=== PATIENT | female | born 1965 | race Caucasian/White ===

== ENCOUNTER 2016-12-02 17:17 | Emergency (ER) | payer MEDICAID ==
[~2016-12-02] VITALS: Ht 162.6 cm; Wt 133.0 kg
[~2016-12-02 17:17] MED LIST: CITA20 PO; CYCL-36 PO; GABA600T PO; GLUC10TA3 PO; HYDR-3533 PO; LISI-586 PO; MEDR4PAK3 PO; METF500 PO; PIOG15 PO
[2016-12-02 17:25] VITALS: BP 177/66; PULSE 105; RESP 20; TEMP 98.3; O2SAT 99
--- NOTE | 2016-12-02 17:37 | PD ---
HPI Chief Complaint: Respiratory Symptoms Time Seen by Provider: 17:29 Travel History International Travel<30 days: No Contact w/Intl Traveler<30days: No Traveled to known affect area: No History of Present Illness HPI 51-year-old female presents the emergency Department with bronchitis and asthma with increased productive cough over the past several days. Patient is a 2 diabetic on insulin with history of recurrent bronchitis with wheezing. Patient has nebulizers at home. She ran out of her metered-dose inhaler several weeks ago. Patient has had chills but no specific reports of fever. Patient states she quit smoking 2 days ago. Patient has no nausea vomiting or diarrhea. She denies headache or severe sore throat. PFSH Past Medical History Cardiovascular Problems: Yes (HTN) Diabetes: Yes Respiratory: Yes (COPD) Social History Alcohol Use: Yes Tobacco Use: Yes Substance Use: No Allergies-Medications (Allergen,Severity, Reaction): Coded Allergies: Codeine (Verified Allergy, Intermediate, 12/02/16) Itch Metformin (Verified Adverse Reaction, Severe, 12/02/16) Pancreatitis Morphine (Verified Adverse Reaction, Severe, 12/02/16) Pizano Veins Reported Meds & Prescriptions Reported Meds & Active Scripts Active Prednisone 20 Mg Tab 20 Mg PO BID Azithromycin 500 Mg Tab 500 Mg PO DAILY Ventolin Hfa 18 GM Inh (Albuterol Sulfate) 90 Mcg/Act Aer 2 Puff INH Q4-6H PRN Reported Albuterol Neb (Albuterol Sulfate) 0.63 Mg/3 Ml Neb 0.63 Mg NEB Q4HR NEB PRN Proair Hfa 8.5 GM Inh (Albuterol Sulfate) 90 Mcg/Act Aer 1 Puff INH Q4H PRN 108 mcg/actuation Mucinex Allergy (Fexofenadine HCl) 180 Mg Tab 180 Mg PO DAILY Glipizide 10 Mg Tab 10 Mg PO DAILY Take 30 minutes before a meal Valium (Diazepam) 5 Mg Tab 5 Mg PO HS PRN Flexeril (Cyclobenzaprine HCl) 10 Mg Tab 2 Tab PO DIRECTED Lisinopril-Hctz 20-12.5 Mg Tab 1 Tab PO DAILY Novolog Penfill Inj (Insulin Aspart) 300 Unit/3 Ml Pen 1 Units SQ DIRECTED PRN Lantus Solostar Pen Inj (Insulin Glargine) 300 Unit/3 Ml Pen 20 Units SQ HS Januvia (Sitagliptin Phosphate) 50 Mg Tab 50 Mg PO DAILY Review of Systems Except as stated in HPI: all other systems reviewed are Neg General / Constitutional: No: Fever Eyes: No: Visual changes HENT: Positive: Rhinitis, Rhinorrhea, Congestion, No: Headaches, Sore Throat, Neck Stiffness, Neck Pain, Ear Discharge, Earache Cardiovascular: No: Chest Pain or Discomfort Respiratory: Positive: Cough, Shortness of Breath, Wheezing, Orthopnea, No: Sneezing, Hemoptysis, Stridor, Night Sweats, Pleuritic Pain Gastrointestinal: No: Nausea, Vomiting, Diarrhea, Abdominal Pain Genitourinary: No: Dysuria Musculoskeletal: No: Pain Skin: No Rash Neurologic: No: Weakness Psychiatric: No: Depression Endocrine: No: Polydipsia Hematologic/Lymphatic: No: Easy Bruising Physical Exam Narrative GENERAL: Morbidly obese patient in mild respiratory distress. SKIN: Warm and dry. Normal color. Normal turgor. HEAD: Atraumatic. Normocephalic. No sinus tenderness. EYES: Pupils equal and round. No scleral icterus. No injection or drainage. ENT: No nasal bleeding or discharge. No sinus tenderness to palpation. Mucous membranes pink and moist. Neck supple. Pharynx is Unremarkable. TMs are clear bilaterally. Airway is patent. Uvula is midline. NECK: Trachea midline. Supple and nontender. CARDIOVASCULAR: Regular rate and rhythm. RESPIRATORY: Mild accessory muscle use. Moderate diffuse wheezing to auscultation. Breath sounds equal bilaterally. MUSCULOSKELETAL: Extremities without clubbing, cyanosis, or edema. No obvious deformities. NEUROLOGICAL: Awake and alert. No obvious cranial nerve deficits. Motor grossly within normal limits. Five out of 5 muscle strength in the arms and legs. Normal speech. PSYCHIATRIC: Appropriate mood and affect; insight and judgment normal. Data Data Last Documented VS Vital Signs Date Time Temp Pulse Resp B/P Pulse Ox O2 Delivery O2 Flow Rate FiO2 12/02/16 18:17 97 Room Air 12/02/16 17:25 98.3 105 20 177/66 Orders Chest, Single Ap (12/02/16 17:37) Ecg Monitoring (12/02/16 17:37) Oximetry (12/02/16 17:37) Oxygen Administration (12/02/16 17:37) Prednisone (Deltasone) (12/02/16 17:45) Albuterol-Ipratropium Neb (Duoneb Neb) (12/02/16 17:45) Sodium Chloride 0.9% Flush (Ns Flush) (12/02/16 17:45) Ceftriaxone Inj (Rocephin Inj) (12/02/16 17:45) Azithromycin (Zithromax) (12/02/16 17:45) Lidocaine Pf 1% Inj (Xylocaine-Mpf 1% In (12/02/16 18:15) MDM Medical Decision Making Medical Screen Exam Complete: Yes Emergency Medical Condition: Yes Differential Diagnosis Asthma with exacerbation. Bronchitis. COPD. Wheezing. Pneumonia. Narrative Course Patient appears in mild to moderate respiratory distress. Chest x-ray is ordered. Chest x-ray is read as no acute process per radiologist. Patient is given 60 mg prednisone by mouth as well as DuoNeb every 15 minutes 3. Patient is given Rocephin 1000 mg IM. Patient is given azithromycin 500 mg by mouth. Patient will be treated with azithromycin 500 mg daily for the next 5 days. Patient is continued on prednisone 20 mg twice a day 7 days. Patient is to use albuterol nebulizer every 4-6 hours when necessary. Patient is to continue to not smoke. Patient is to follow-up with her primary care physician or return to emergency department as necessary. Diagnosis Primary Impression: Acute wheezy bronchitis Referrals: Primary Care Physician Patient Instructions: Acute Bronchitis (ED), General Instructions, Wheezing (ED ) Additional Instructions: Patient is given 60 mg prednisone by mouth as well as DuoNeb every 15 minutes 3. Patient is given Rocephin 1000 mg IM. Patient is given azithromycin 500 mg by mouth. Patient will be treated with azithromycin 500 mg daily for the next 5 days. Patient is continued on prednisone 20 mg twice a day 7 days. Patient is to use albuterol nebulizer every 4-6 hours when necessary. Patient is to continue to not smoke. Patient is to follow-up with her primary care physician or return to emergency department as necessary. Med/Other Pt SpecificInfo: Prescription(s) given Scripts Prednisone 20 Mg Tab20 Mg PO BID #14 TAB Prov:Ruma Calderón MD 12/02/16 Azithromycin 500 Mg Hog050 Mg PO DAILY #5 TAB Ref 0 Prov:Ruma Calderón MD 12/02/16 Albuterol 18 GM Inh (Ventolin Hfa 18 GM Inh)90 Mcg/Act Aer2 Puff INH Q4-6H PRN ( SHORTNESS OF BREATH) #1 INHALER Prov:Ruma Calderón MD 12/02/16 Disposition: 01 DISCHARGE HOME Condition: Stable Taran Agrawal Dec 02, 2016 17:37
[2016-12-02] MEDS ORDERED: FEXO1TAB41 PO (17:41)
[2016-12-02] MEDS ORDERED: NOVOINJ SQ (17:41)
[2016-12-02] MEDS ORDERED: CYCL1TAB29 PO (17:41)
[2016-12-02] MEDS ORDERED: LANTINJ SQ (17:41)
[2016-12-02] MEDS ORDERED: SITA50 PO (17:41)
[2016-12-02] MEDS ORDERED: ALBUAER3 INH (17:41)
[2016-12-02] MEDS ORDERED: ALBU0.63 NEB (17:41)
[2016-12-02] MEDS ORDERED: LISI20TA PO (17:41)
[2016-12-02] MEDS ORDERED: GLIP10TA6 PO (17:41)
[2016-12-02] MEDS ORDERED: DIAZ5 PO (17:41)
[2016-12-02] MEDS: RESP: ALBUTEROL 2.5 MG/IPRATROPIUM 0.5 MG NEB (SCH) INH (17:43)
[2016-12-02] MEDS ORDERED: AZITHROMYCIN 250 MG TAB PO ONE (17:45)
[2016-12-02] MEDS ORDERED: SODIUM CHLORIDE 0.9% FLUSH 10 ML FLUSH IVF PRN (17:45)
[2016-12-02] MEDS ORDERED: predniSONE 20 MG TAB PO ONE (17:45)
[2016-12-02] MEDS ORDERED: LIDOCAINE HCL 1% 20 ML VIAL INFIL ONE (18:00)
[2016-12-02] MEDS ORDERED: LIDOCAINE HCL 1% 30 ML VIAL INFIL ONE (18:00)
[2016-12-02] MEDS ORDERED: LIDOCAINE HCL 1% PF 30 ML VIAL INFIL ONE (18:15)
[2016-12-02 18:17] VITALS: O2SAT 97
--- NOTE | 2016-12-02 18:29 | RADHPO ---
EXAM DATE/TIME: 12/02/2016 18:09 [facility] COMPARISON: No previous studies available for comparison. INDICATIONS : Short of breath, cough, chest pains MEDICAL HISTORY : Chronic obstructive pulmonary disease. SURGICAL HISTORY : None. ENCOUNTER: Initial ACUITY: 4 - 6 days PAIN SCORE: 10/10 LOCATION: Bilateral chest FINDINGS: A single view of the chest demonstrates the lungs to be symmetrically aerated without evidence of mas s, infiltrate or effusion. The cardiomediastinal contours are unremarkable. Osseous structures are intact. CONCLUSION: No acute disease. Yassine Sam MD on December 02, 2016 at 18:19 Board Certified Radiologist. This report was verified electronically.
[2016-12-02] MEDS ORDERED: VENTAER INH (18:35)
[2016-12-02] MEDS ORDERED: AZIT500T2 PO (18:35)
[2016-12-02] MEDS ORDERED: PRED20 PO (18:35)
[2016-12-02 18:49] VITALS: BP 146/71; PULSE 112; RESP 18; O2SAT 96
== END 2016-12-02 19:06 | disposition home or self-care (01) ==
LOC: PHEFT 17:17
DX: J20.9 Acute bronchitis, unspecified (principal); Z87.891 Personal history of nicotine dependence; I10 Essential (primary) hypertension; E11.9 Type 2 diabetes mellitus without complications; J44.9 Chronic obstructive pulmonary disease, unspecified
CPT/HCPCS: 71010; 94640; 94664; 96372; 99283; J0696; J7512

== ENCOUNTER 2016-12-11 02:28 | Emergency (ER) | payer MEDICAID ==
[~2016-12-11] VITALS: Ht 165.1 cm; Wt 127.3 kg
[~2016-12-11 02:28] MED LIST changes: +ALBU0.63 NEB; +ALBUAER3 INH; +AZIT500T2 PO; -CITA20 PO; -CYCL-36 PO; +CYCL1TAB29 PO; +DIAZ5 PO; +FEXO1TAB41 PO; -GABA600T PO; +GLIP10TA6 PO; -GLUC10TA3 PO; -HYDR-3533 PO; +LANTINJ SQ; -LISI-586 PO; +LISI20TA PO; -MEDR4PAK3 PO; -METF500 PO; +NOVOINJ SQ; -PIOG15 PO; +PRED20 PO; +SITA50 PO; +VENTAER INH
[2016-12-11 02:34] VITALS: BP 136/105; PULSE 107; RESP 16; TEMP 97.7; O2SAT 95
[2016-12-11 03:00] VITALS: BP 181/84; PULSE 99; RESP 20; O2SAT 97
[2016-12-11] MEDS ORDERED: SODIUM CHLORIDE 0.9% FLUSH 10 ML FLUSH IVF PRN (03:00)
[2016-12-11] MEDS: RESP: ALBUTEROL 2.5 MG/IPRATROPIUM 0.5 MG NEB (SCH) INH (03:02)
[2016-12-11 03:47] LABS: BLOOD, URINE NEG (NEG); GLUCOSE,URINE 500 mg/dL (NEG); KETONE, URINE TRACE mg/dL (NEG); NITRITE,URINE NEG (NEG)
[2016-12-11 03:55] LABS: AUTOMATED NEUTROPHIL # 13.8 TH/MM3 (1.8-7.7); BASOPHIL # 0.2 TH/MM3 (0-0.2); BASOPHIL % 1.2 % (0.0-2.0); EOSINOPHIL # 0.2 TH/MM3 (0-0.4); HEMATOCRIT 47.9 % (35.0-46.0); LYMPHOCYTE # 3.5 TH/MM3 (1.0-4.8); MEAN CELL VOLUME 85.5 FL (80.0-100.0); MEAN CORPUSCULAR HEMOGLOBIN 27.9 PG (27.0-34.0); MEAN CORPUSCULAR HGB CONC 32.7 % (32.0-36.0); MONO % 4.5 % (0.0-8.0); NEUT % 74.3 % (16.0-70.0); PLATELET COUNT 403 TH/MM3 (150-450); RED BLOOD COUNT 5.61 MIL/MM3 (4.00-5.30); RED CELL DISTRIBUTION WIDTH 15.2 % (11.6-17.2); WHITE BLOOD COUNT 18.5 TH/MM3 (4.0-11.0)
[2016-12-11 03:58] LABS: URINE COLOR YELLOW (YELLW/STRAW)
[2016-12-11 03:59] LABS: MUCUS URINE FEW /lpf (OCC); SQUAMOUS EPITHELIAL CELL URINE 0-5 /hpf (0-5)
--- NOTE | 2016-12-11 04:00 | RADHPO ---
EXAM DATE/TIME: 12/11/2016 03:38 [facility] COMPARISON: CHEST SINGLE AP, December 02, 2016, 18:09. INDICATIONS : Short of breath. MEDICAL HISTORY : None. SURGICAL HISTORY : None. ENCOUNTER: Initial ACUITY: 1 day PAIN SCORE: 6/10 LOCATION: Bilateral chest FINDINGS: A single view of the chest demonstrates the lungs to be symmetrically aerated without evidence of mas s, infiltrate or effusion. The cardiomediastinal contours are unremarkable. Osseous structures are intact. CONCLUSION: Normal examination. Iain Gaxiola Jr., MD on December 11, 2016 at 3:58 Board Certified Radiologist. This report was verified electronically.
[2016-12-11 04:02] LABS: BACTERIA, URINE OCC /hpf; COMMENT (UR) CULT NOT INDICATED; CULTURE IF INDICATED CULT NOT INDICATED
[2016-12-11 04:07] LABS: CHLORIDE 95 MEQ/L (98-107); POTASSIUM 3.6 MEQ/L (3.5-5.1); SODIUM (NA) 137 MEQ/L (136-145)
[2016-12-11 04:09] LABS: ANION GAP 11 MEQ/L (5-15); BICARBONATE 31.4 MEQ/L (21.0-32.0)
[2016-12-11 04:10] LABS: APTT (PATIENT) 23.7 SEC (24.3-30.1); BLOOD UREA NITROGEN 21 MG/DL (7-18); INTERNATIONAL NORMALIZED RATIO 0.9 RATIO
[2016-12-11 04:11] LABS: HEMO FLAGS AUTO DIFF
[2016-12-11 04:13] LABS: GLOMERULAR FILTRATION RATE 60 ML/MIN (>89)
[2016-12-11 04:29] LABS: PLATELET ESTIMATE SMEAR NORMAL (NORMAL); PLATELET MORPHOLOGY NORMAL (NORMAL); SCAN/DIFF AUTO DIFF CONFIRMED
[2016-12-11] MEDS ORDERED: SODIUM CHLOR 0.9% 1000 ML INJ 1,000 ML IV ONE (04:30)
[2016-12-11 04:37] LABS: CREATINE KINASE 86 U/L (26-192)
--- NOTE | 2016-12-11 04:40 | RADHPO ---
EXAM DATE/TIME: 12/11/2016 03:50 [facility] COMPARISON: No previous studies available for comparison. INDICATIONS : Cephalgia. RADIATION DOSE: 59.18 CTDIvol (mGy) MEDICAL HISTORY : Hypertension. Diabetes mellitus type 2. SURGICAL HISTORY : None. ENCOUNTER: Initial ACUITY: 1 day PAIN SCALE: 6/10 LOCATION: Bilateral cranial TECHNIQUE: Multiple contiguous axial images were obtained of the head. Using automated exposure control and adj ustment of the mA and/or kV according to patient size, radiation dose was kept as low as reasonably a chievable to obtain optimal diagnostic quality images. FINDINGS: CEREBRUM: The ventricles are normal for age. No evidence of midline shift, mass lesion, hemorrhage or acute in farction. No extra-axial fluid collections are seen. POSTERIOR FOSSA: The cerebellum and brainstem are intact. The 4th ventricle is midline. The cerebellopontine angle i s unremarkable. EXTRACRANIAL: The visualized portion of the orbits is intact. Mucosal thickening without air-fluid level involving the right maxillary sinus. SKULL: The calvaria is intact. No evidence of skull fracture. CONCLUSION: 1. No acute intracranial abnormality. 2. Chronic right maxillary sinus disease. Iain Gaxiola Jr., MD on December 11, 2016 at 4:38 Board Certified Radiologist. This report was verified electronically.
[2016-12-11] MEDS ORDERED: KETOROLAC TROMETHAMINE 30 MG/ML (IVP) VIAL IV PUSH ONE (04:45)
--- NOTE | 2016-12-11 05:00 | PD ---
HPI Chief Complaint: Pain: Acute or Chronic Time Seen by Provider: 02:46 Travel History International Travel<30 days: No Contact w/Intl Traveler<30days: No Traveled to known affect area: No History of Present Illness HPI Patient is a 51 year old female who comes in complaining of cramping of her legs. She says that she had a cramp in her left foot and then the pain spread up her leg into the left side of her abdomen. She says she also developed the cramping pain to the right leg. This all started suddenly tonight after she had spent most of the night packing to return to [place]. She says she also experienced a "numbness" to her left arm. She says she still has feeling to her arm, but it feels different. She denies any chest pain. She has been having a COPD exacerbation. She was seen here a few days ago and was started on Prednisone. She says that she feels like she needs a nebulizer treatment, but she packed her machine. PFSH Past Medical History Arthritis: Yes Asthma: Yes Cardiovascular Problems: Yes (HTN) High Cholesterol: Yes COPD: Yes Diabetes: Yes Patient Takes Glucophage: No Hypertension: Yes Musculoskeletal: Yes Respiratory: Yes (COPD) Triglycerides - High: Yes Tetanus Vaccination: Unknown ?: Not Past Surgical History Hysterectomy: Yes (PARTIAL) Social History Alcohol Use: Yes (SOCIAL) Tobacco Use: No (QUIT 11/30/16) Substance Use: No Allergies-Medications (Allergen,Severity, Reaction): Coded Allergies: Codeine (Verified Allergy, Intermediate, 12/11/16) Itch Metformin (Verified Adverse Reaction, Severe, 12/11/16) Pancreatitis Morphine (Verified Adverse Reaction, Severe, 12/11/16) Pizano Veins Reported Meds & Prescriptions Reported Meds & Active Scripts Active Prednisone 20 Mg Tab 20 Mg PO BID Ventolin Hfa 18 GM Inh (Albuterol Sulfate) 90 Mcg/Act Aer 2 Puff INH Q4-6H PRN Reported Albuterol Neb (Albuterol Sulfate) 0.63 Mg/3 Ml Neb 0.63 Mg NEB Q4HR NEB PRN Proair Hfa 8.5 GM Inh (Albuterol Sulfate) 90 Mcg/Act Aer 1 Puff INH Q4H PRN 108 mcg/actuation Mucinex Allergy (Fexofenadine HCl) 180 Mg Tab 180 Mg PO DAILY Glipizide 10 Mg Tab 10 Mg PO DAILY Take 30 minutes before a meal Valium (Diazepam) 5 Mg Tab 5 Mg PO HS PRN Flexeril (Cyclobenzaprine HCl) 10 Mg Tab 2 Tab PO DIRECTED Lisinopril-Hctz 20-12.5 Mg Tab 1 Tab PO DAILY Novolog Penfill Inj (Insulin Aspart) 300 Unit/3 Ml Pen 1 Units SQ DIRECTED PRN Lantus Solostar Pen Inj (Insulin Glargine) 300 Unit/3 Ml Pen 20 Units SQ HS Januvia (Sitagliptin Phosphate) 50 Mg Tab 50 Mg PO DAILY Review of Systems Except as stated in HPI: all other systems reviewed are Neg General / Constitutional: No: Fever, Chills Eyes: No: Blurred Vision HENT: Positive: Headaches, No: Lightheadedness Cardiovascular: No: Chest Pain or Discomfort Respiratory: Positive: Shortness of Breath, Wheezing Gastrointestinal: Positive: Abdominal Pain, No: Vomiting Genitourinary: No: Dysuria Musculoskeletal: Positive: Myalgias Skin: No Rash, No Change in Pigmentation Neurologic: No: Weakness Physical Exam Narrative GENERAL: Awake and alert, in no acute distress. SKIN: Focused skin assessment warm/dry. HEAD: Atraumatic. Normocephalic. EYES: Pupils equal and round. No scleral icterus. EOMI. ENT: Mucous membranes pink and moist. NECK: Trachea midline. No JVD. CARDIOVASCULAR: Regular rate and rhythm. No murmur appreciated. RESPIRATORY: No accessory muscle use. occasional wheezing bilaterally. Breath sounds equal bilaterally. GASTROINTESTINAL: Abdomen soft, non-tender, nondistended. MUSCULOSKELETAL: No obvious deformities. No clubbing. No cyanosis. No edema. NEUROLOGICAL: Awake and alert. No obvious cranial nerve deficits. Motor grossly within normal limits. Normal speech. Sensation intact. PSYCHIATRIC: Appropriate mood and affect; insight and judgment normal. Data Data Last Documented VS Vital Signs Date Time Temp Pulse Resp B/P Pulse Ox O2 Delivery O2 Flow Rate FiO2 12/11/16 06:23 88 20 137/62 98 12/11/16 03:00 Room Air 12/11/16 02:34 97.7 Orders Complete Blood Count With Diff (12/11/16 02:54) Basic Metabolic Panel (Bmp) (12/11/16 02:54) Act Partial Throm Time (Ptt) (12/11/16 02:54) Prothrombin Time / Inr (Pt) (12/11/16 02:54) Ckmb (Isoenzyme) Profile (12/11/16 02:54) Troponin I (12/11/16 02:54) Urinalysis - C+S If Indicated (12/11/16 02:54) Ua Includes Microscopic (12/11/16 02:54) Iv Access Insert/Monitor (12/11/16 02:54) Electrocardiogram (12/11/16 02:54) Ecg Monitoring (12/11/16 02:54) Oximetry (12/11/16 02:54) Oxygen Administration (12/11/16 02:54) Chest, Single Ap (12/11/16 02:54) Sodium Chloride 0.9% Flush (Ns Flush) (12/11/16 03:00) Albuterol-Ipratropium Neb (Duoneb Neb) (12/11/16 03:00) Ct Brain W/O Iv Contrast(Rout) (12/11/16 ) Blood Glucose (12/11/16 02:54) Sodium Chlor 0.9% 1000 Ml Inj (Ns 1000 M (12/11/16 04:30) Ketorolac Inj (Toradol Inj) (12/11/16 04:45) Labs Laboratory Tests Test 12/11/16 12/11/16 03:30 03:45 White Blood Count 18.5 TH/MM3 Red Blood Count 5.61 MIL/MM3 Hemoglobin 15.6 GM/DL Hematocrit 47.9 % Mean Corpuscular Volume 85.5 FL Mean Corpuscular Hemoglobin 27.9 PG Mean Corpuscular Hemoglobin 32.7 % Concent Red Cell Distribution Width 15.2 % Platelet Count 403 TH/MM3 Mean Platelet Volume 8.1 FL Neutrophils (%) (Auto) 74.3 % Lymphocytes (%) (Auto) 19.0 % Monocytes (%) (Auto) 4.5 % Eosinophils (%) (Auto) 1.0 % Basophils (%) (Auto) 1.2 % Neutrophils # (Auto) 13.8 TH/MM3 Lymphocytes # (Auto) 3.5 TH/MM3 Monocytes # (Auto) 0.8 TH/MM3 Eosinophils # (Auto) 0.2 TH/MM3 Basophils # (Auto) 0.2 TH/MM3 CBC Comment AUTO DIFF Differential Comment AUTO DIFF CONFIRMED Platelet Estimate NORMAL Platelet Morphology Comment NORMAL Red Cell Morphology Comment NORMAL Prothrombin Time 10.0 SEC Prothromb Time International 0.9 RATIO Ratio Activated Partial 23.7 SEC Thromboplast Time Urine Color YELLOW Urine Turbidity CLEAR Urine pH 5.0 Urine Specific [place] GREATER THAN 1.035 Urine Protein 30 mg/dL Urine Glucose (UA) 500 mg/dL Urine Ketones TRACE mg/dL Urine Occult Blood NEG Urine Nitrite NEG Urine Bilirubin NEG Urine Leukocyte Esterase NEG Urine WBC 3-5 /hpf Urine Squamous Epithelial 0-5 /hpf Cells Urine Bacteria OCC /hpf Urine Hyaline Casts 3-5 /lpf Urine Mucus FEW /lpf Urine Yeast (Budding) OCC Microscopic Urinalysis Comment CULT NOT INDICATED Sodium Level 137 MEQ/L Potassium Level 3.6 MEQ/L Chloride Level 95 MEQ/L Carbon Dioxide Level 31.4 MEQ/L Anion Gap 11 MEQ/L Blood Urea Nitrogen 21 MG/DL Creatinine 0.98 MG/DL Estimat Glomerular Filtration 60 ML/MIN Rate Random Glucose 159 MG/DL Calcium Level 9.8 MG/DL Total Creatine Kinase 86 U/L Troponin I LESS THAN 0.02 NG/ML MDM Medical Decision Making Medical Screen Exam Complete: Yes Emergency Medical Condition: Yes Medical Record Reviewed: Yes Interpretation(s) ECG shows NSR at 95, no ST elevation or depression, normal intervals Differential Diagnosis Dehydration versus electrolyte abnormality versus tension headache versus hyperglycemia Narrative Course Patient is a 51-year-old female comes in complaining of cramping of her lower extremities. Exam shows no acute abnormalities other than some wheezing in her lungs. IV established, labs sent. Patient connected to the monitor technician. Labs show a white blood cell count of 18. This is very likely due to the fact the patient is on steroids. Hemoglobin is also elevated to 15.6. BUNs 21 and creatinine is 0.98. Labs suggest patient is dehydrated. She does admit to not drinking water, and says she drinks a lot of diet Mountain Dew. She was exerting herself all day today and the sun. CT head performed shows no acute abnormalities. Chest x-ray shows no acute abnormalities. Patient given IV fluids, Toradol. She reports feeling much better. Patient advised of concerning symptoms. She says she wishes to go home at this time. Will be discharged home to follow-up with her doctor. Advised to increase her water intake. Advised to return to the ED as needed for any worsening symptoms. Last 24 hours Impressions Chest X-Ray 12/11/16 0254 Signed Impressions: Service Date/Time: Sunday, December 11, 2016 03:38 - CONCLUSION: Normal examination. Iain Gaxiola Jr., MD Head CT 12/11/16 0000 Signed Impressions: Service Date/Time: Sunday, December 11, 2016 03:50 - CONCLUSION: 1. No acute intracranial abnormality. 2. Chronic right maxillary sinus disease. Iain Gaxiola Jr., MD Diagnosis Primary Impression: Dehydration Additional Impression: Muscle cramps Patient Instructions: Dehydration (ED), General Instructions, Muscle Cramp (ED) Additional Instructions: Follow up with your doctor. Increase the amount of water you are drinking. Return to the ED as needed for any worsening symptoms. Disposition: 01 DISCHARGE HOME Condition: Stable Marleny Whelan MD Dec 11, 2016 05:00
[2016-12-11 06:23] VITALS: BP 137/62
--- NOTE | 2016-12-11 10:35 | EKG ---
Date Performed: 12/11/2016 Time Performed: 03:10:12 PTAGE: 51 years EKG: Sinus rhythm . Normal ECG NO PREVIOUS TRACING DOCTOR: Blanquita Medrano Interpretating Date/Time 12/11/2016 10:27:46
== END 2016-12-11 06:26 | disposition home or self-care (01) ==
LOC: PHED 02:28
DX: E86.0 Dehydration (principal); R25.2 Cramp and spasm; R06.02 Shortness of breath; M79.1 Myalgia; J45.909 Unspecified asthma, uncomplicated; I10 Essential (primary) hypertension; J44.9 Chronic obstructive pulmonary disease, unspecified; E11.9 Type 2 diabetes mellitus without complications
CPT/HCPCS: 70450; 71010; 80048; 81001; 82550; 84484; 85025; 85610; 85730; 93005; 96374; 99284; J1885; J7030